=== PATIENT | female | born 1980 | race Caucasian/White ===

== ENCOUNTER → 2017-10-02 14:58 | Outpatient (REF) | payer MEDICAID, SELFPAY ==
[2017-10-02 19:26] LABS: Alanine Aminotransferase 22 U/L (12-78); Albumin Level 3.9 gm/dL (3.4-5.0); Albumin/Globulin Ratio 1.1 (1.1-1.8); Alkaline Phosphatase 74 U/L (46-116); Anion Gap 15.2 mEq/L (5-15); Bilirubin,Total 0.1 mg/dL (0.2-1.0); Blood Urea Nitrogen 10 mg/dL (7-18); Calcium 9.3 mg/dL (8.5-10.1); Carbon Dioxide 23 mmol/L (21.0-32.0); Chloride 104 mmol/L (98-107); Creatinine,Serum 0.37 mg/dL (0.55-1.02); Estimated Glomerular Filt Rate 197 ml/min (>60); Free T4 (Free Thyroxine) 1.03 ng/dl (0.76-1.46); GFR (African American) 238 ML/MIN (>60); Globulin 3.4 gm/dl (1.3-3.2); Glucose 92 mg/dL (74-106); Sodium 137 mmol/L (136-145); Thyroid Stimulating Hormone 1.89 uIU/ml (0.358-3.740); Total Protein,Serum 7.3 gm/dL (6.4-8.2)
[2017-10-02 19:36] LABS: Potassium 5.2 mmoL/L (3.5-5.1)
[2017-10-02 19:37] LABS: Aspartate Amino Transferase 17 U/L (15-37)
[2017-10-04 08:51] LABS: Vitamin D 25 Hydroxy 24.2 ng/mL (30.0-100.0)
== END ==
LOC: LAB 14:58
PROVIDERS: Visit Provider Emergency Medicine
DX: R53.83 Other fatigue (principal); Z79.899 Other long term (current) drug therapy
CPT/HCPCS: 80053; 82652; 84439; 84443

== ENCOUNTER → 2017-10-23 14:28 | Outpatient (REF) | payer MEDICAID, SELFPAY ==
[2017-10-23 18:51] LABS: Amphetamine/Metha Screen,Urine Negative ng/mL (<1000); Barbiturates Screen,Urine Negative ng/mL (<200); Benzodiazepines Screen,Urine Negative ng/mL (200); Cannabinoid Screen,Urine Negative ng/mL (<50); Cocaine Screen,Urine Negative ng/g (<300); Methadone Screen,Urine Negative ng/mL (<300); Opiate Screen,Urine Negative ng/mL (<300); Phencyclidine Screen,Urine Negative ng/mL (<25)
== END ==
LOC: LAB 14:28
PROVIDERS: Visit Provider Emergency Medicine
DX: Z79.899 Other long term (current) drug therapy (principal)
CPT/HCPCS: 80305

== ENCOUNTER → 2018-02-11 09:52 | Outpatient (REF) | payer MEDICAID, SELFPAY ==
[2018-02-11 13:30] LABS: Amphetamine/Metha Screen,Urine Negative ng/mL (<1000); Barbiturates Screen,Urine Negative ng/mL (<200); Benzodiazepines Screen,Urine Negative ng/mL (200); Cannabinoid Screen,Urine Negative ng/mL (<50); Cocaine Screen,Urine Negative ng/g (<300); Methadone Screen,Urine Negative ng/mL (<300); Opiate Screen,Urine Negative ng/mL (<300); Phencyclidine Screen,Urine Negative ng/mL (<25)
[2018-02-11 13:38] LABS: Alanine Aminotransferase 21 U/L (12-78); Albumin Level 3.8 gm/dL (3.4-5.0); Alkaline Phosphatase 77 U/L (46-116); Bilirubin,Total 0.1 mg/dL (0.2-1.0); Free T4 (Free Thyroxine) 0.92 ng/dl (0.76-1.46); Thyroid Stimulating Hormone 1.68 uIU/ml (0.358-3.740); Total Protein,Serum 7.1 gm/dL (6.4-8.2)
[2018-02-11 13:45] LABS: Aspartate Amino Transferase 19 U/L (15-37); Bilirubin,Direct < 0.1 mg/dL (0.0-0.2)
[2018-02-12 10:23] LABS: Hep A Ab, IgM Negative (Negative); Hepatitis B Core Antibody IgM Negative (Negative); Hepatitis B Surface Antigen Negative (Negative)
[2018-02-12 14:39] LABS: Hepatitis C Antibody <0.1 s/co ratio (0.0-0.9)
[2018-02-14 18:25] LABS: Alprazolam Negative (Cutoff=100); Benzodiazepines Negative ng/mL (Cutoff=100); Clonazepam Negative (Cutoff=100); Flurazepam Negative (Cutoff=100); Lorazepam Negative (Cutoff=100); Midazolam Negative (Cutoff=100); Temazepam Negative (Cutoff=100); Triazolam Negative (Cutoff=100)
== END ==
LOC: LAB 09:52
PROVIDERS: Visit Provider Emergency Medicine
DX: F41.9 Anxiety disorder, unspecified (principal); Z79.899 Other long term (current) drug therapy
CPT/HCPCS: 80074; 80076; 80305; 80346; 84439; 84443; 87522

== ENCOUNTER → 2018-03-25 13:08 | Outpatient (REF) | payer MEDICAID, SELFPAY ==
[2018-03-25 19:19] LABS: Amphetamine/Metha Screen,Urine Negative ng/mL (<1000); Barbiturates Screen,Urine Negative ng/mL (<200); Benzodiazepines Screen,Urine Negative ng/mL (<200); Cannabinoid Screen,Urine Negative ng/mL (<50); Cocaine Screen,Urine Negative ng/mL (<300); Methadone Screen,Urine Negative ng/mL (<300); Opiate Screen,Urine Negative ng/mL (<300); Phencyclidine Screen,Urine Negative ng/mL (<25)
== END ==
LOC: LAB 13:08
PROVIDERS: Visit Provider Emergency Medicine
DX: Z79.899 Other long term (current) drug therapy (principal)
CPT/HCPCS: 80305

== ENCOUNTER → 2019-10-30 07:55 | Outpatient (CLI) | payer MEDICAID, SELFPAY ==
[2019-10-30 08:59] LABS: Basophils # 0.1 K/mm3 (0-0.2); Basophils % 1.1 % (0.1-2.0); Eosinophils # 0.2 K/mm3 (0.0-0.4); Eosinophils % 2.3 % (0.1-12.0); Hematocrit 36.8 % (37.0-47.0); Hemoglobin 11.3 g/dL (12.2-16.2); Lymphocytes # 3.5 K/mm3 (0.7-4.5); Lymphocytes % 34.9 % (10-50); Mean Corpuscular HGB Conc 30.7 g/dL (31.8-35.4); Mean Corpuscular Hemoglobin 24.3 pg (27.0-31.2); Mean Corpuscular Volume 79.2 fl (81-99); Mean Platelet Volume 7.7 fl (7.4-10.4); Monocytes # 0.5 K/mm3 (0.1-1.0); Monocytes % 4.5 % (1.7-9.3); Neutrophils # 5.8 K/mm3 (1.8-7.8); Neutrophils % 57.2 % (37.0-80.0); Platelet Count 501 K/mm3 (142-424); Red Blood Count 4.65 M/mm3 (4.20-5.40); Red Cell Distribution Width 16.9 % (11.5-17.5); White Blood Count 10.1 K/mm3 (4.8-10.8)
[2019-10-30 10:11] LABS: Alanine Aminotransferase 15 U/L (12-78); Albumin Level 4.4 g/dl (3.5-5.0); Albumin/Globulin Ratio 1.6 (1.1-1.8); Alkaline Phosphatase 66 U/L (38-126); Anion Gap 11.9 mEq/L (5-15); Aspartate Amino Transferase 23 U/L (14-36); Blood Urea Nitrogen 13 mg/dl (7-17); Calcium 9.7 mg/dl (8.4-10.2); Carbon Dioxide 25 mmol/L (22.0-30.0); Chloride 102 mmol/L (98-107); Chol/HDL Ratio 3.6 (1-3.5); Cholesterol 202 mg/dl (140-200); Estimated Glomerular Filt Rate 137 ml/min (>60); GFR (African American) 165 ML/MIN (>60); Globulin 2.7 g/dL (1.3-3.2); Glucose 84 mg/dl (74-100); HDL Cholesterol 56 mg/dl (40-60); Potassium 3.9 mmoL/L (3.5-5.1); Sodium 135 mmol/L (136-145); Total Protein,Serum 7.1 g/dl (6.3-8.2); Triglycerides 85 mg/dl (30-150); VLDL Cholesterol 17 mg/dL (0-40)
[2019-10-30 10:20] LABS: Bilirubin,Total 0.1 mg/dl (0.2-1.3)
[2019-10-30 10:22] LABS: Direct LDL Cholesterol 132.05 mg/dL (100-129)
[2019-10-30 10:27] LABS: T4 (Thyroxine) 8.7 ug/dl (5.53-11.0)
[2019-10-30 10:40] LABS: Thyroid Stimulating Hormone 0.98 uIU/mL (0.465-4.68)
[2019-10-31 10:37] LABS: Vitamin D 25 Hydroxy 18.2 ng/mL (30.0-100.0)
== END ==
PROVIDERS: Visit Provider Nurse Practitioner Family
DX: Z00.00 Encounter for general adult medical examination without abnormal findings (principal); E55.9 Vitamin D deficiency, unspecified; E66.3 Overweight; F41.9 Anxiety disorder, unspecified
CPT/HCPCS: 36415; 80053; 80061; 82652; 84436; 84443; 85025

== ENCOUNTER → 2020-02-25 13:46 | Outpatient (CLI) | payer MEDICAID, SELFPAY ==
--- NOTE | 2020-02-25 13:46 | MR_ITS ---
PROCEDURE: MR LUMBAR SPINE WO CON CLINICAL INDICATION: back pain Low back pain COMPARISON: CT ABDOMEN PELVIS W CON from 11/22/2019 TECHNIQUE: Standard multiplanar multiecho sequences are performed without contrast. 3-D MIP and myelographic images are also rendered and reviewed FINDINGS: There is normal alignment. The spinal cord ends at the L1 level. There is normal alignment. No fracture or dislocation. Mild facet hypertrophic changes are present at L3-L4. Mild facet hypertrophic changes at L4-5 with minimal bulging of the disc and mild bilateral foraminal narrowing. Mild hypertrophic changes of the facets at L5-S1 greater on the left with minimal foraminal narrowing. There are mild degenerative changes of the SI joints. IMPRESSION: Mild degenerative changes as described above. No obvious neural impingement. No disc herniation or canal stenosis. Dictated by: Roger Kerr MD 02/26/2020 14:55 Electronically signed by Roger Kerr MD in [place] 02/26/2020 14:55
== END ==
PROVIDERS: PCP Emergency Medicine; Visit Provider Emergency Medicine
DX: M54.9 Dorsalgia, unspecified (principal); M54.5 Low back pain
CPT/HCPCS: 72148; 76376

== ENCOUNTER 2020-05-23 16:42 | Emergency (ER) | payer MEDICAID, SELFPAY ==
[2020-05-23 17:18] VITALS: BP 129/94; PULSE 86; RESP 20; TEMP 37; O2SAT 97; BMI 37.5
--- NOTE | 2020-05-23 17:22 | HMH.EDUTC ---
[facility] – [place] Disposition Clinical Impression: Nausea & vomiting Qualifiers: Vomiting type: unspecified Vomiting Intractability: unspecified Qualified Code(s): R11.2 - Nausea with vomiting, unspecified Disposition: Home, Self-Care Condition on Discharge: Good Instructions: DI for Nausea -- Adult, Nausea and Vomiting-Adult, Preventing the Spread of Coronavirus Discharge Instructions Additional Instructions: ? Drink extra fluids with and between meals. If you have difficulty drinking, try very small amounts of water or suck on ice chips. ? Avoid fruit juices, as these do not replace minerals and can actually increase diarrhea. ? Children and adults can use sports drinks to replenish electrolytes. Younger children and infants should use products formulated for children, like oral rehydration solutions. ? Eat food in small amounts and let your stomach recover. ? Get lots of rest. You may feel tired or weak. ? No greasy or fried foods for the next 24-48 hours BRAT diet Bananas Rice Apples and Leon ? Make sure to drink plenty of liquids ? Return if needed ? Straight to ER if any life threatening symptoms ? Phenergan as prescribed ? You was given an outpatient order for diarrhea panel, please collect specimen and bring back to outpatient lab then call back to the [facility] or follow up with family doctor for results ? Follow up with family doctor in the next 48-72 hours if no improvement or any worsening of symptoms You was tested for COVID 19 call back to the [facility] in the next 48-72 hours to see what your test result was and you was given hand out with instructions for Self isolation and self quarantine make sure to follow those instructions Prescriptions: Promethazine HCl [Phenergan 12.5mg tablet] 12.5 mg PO Q6H PRN #6 tab PRN Reason: Nausea Transmission Status: Pending to [facility] Referrals: Will Kessler MD [Primary Care Provider] - As needed Forms: Work/School Release Time of Disposition: 17:45 Medical Decision Making - Kelvin Inquiry Pt receiving controlled substance: No Kelvin was queried for this patient: No Vital Signs: 05/23/20 17:18 Temperature 98.6 F Temperature Source Oral Pulse Rate [Right Brachial] 86 Respiratory Rate 20 Blood Pressure [Right Arm] 129/94 H Blood Pressure Mean [Right Arm] 105 Blood Pressure Source [Right Arm] Automatic Cuff Blood Pressure Position [Right Arm] Sitting 02 Sat by Pulse Oximetry 97 Oxygen Delivery Method Room Air - Lab Data Lab results reviewed: Yes: I reviewed the patient's lab results. Orders (Tests/Meds): ORDERS Category Date Time Status Covid-19 Nasal PCR Sendout [facility] 05/23/20 17:22 Ordered [facility] – [place] HPI - General Stated complaint: Vomiting, LITTLE, COVID Exposure Time Seen by Provider: 05/23/20 17:22 Mode of Arrival: Ambulatory Source of Information: Patient Limitations: No Limitations Description of Symptoms (Recalled from Triage Doc. by RN): PATIENT C/O NAUSEA, DIARRHEA, HEADACHE, FATIGUE, COUGH AND DIZZINESS X 3 DAYS. WAS AROUND SOMEONE WHO TESTED POSITIVE FOR COVID AT A WEEKEND [employer] HEENT Symptoms (Recalled from RN notes): Yes Resp Symptoms (Recalled from RN notes): Yes Skin Symptoms (Recalled from RN notes): No MS Symptoms (Recalled from RN notes): No Functional Status (Recalled from RN notes): WNL - History of Present Illness Provider Complaint: Patient states that she was recently around someone who tested positive for COVID States that for the last 3 days she has been having body aches, chills, nausea and vomiting and over all not feeling well States that she is unsure if she is has had fever or not States that she wanted to come in and get checked for COVID - Related Data Previous Rx's Medication Instructions Recorded hydroxyzine pamoate 25 mg capsule 25 mg PO TID PRN #90 cap 02/05/20 clonazepam 0.5 mg tablet 0.5 mg PO BID 30 Days #60 tab 02/18/20 cyclobenzaprine 10 mg tablet 10 mg PO BID #60 tab 02/18/20 hydrocodone 5 mg-acetamino
[2020-05-23 17:52] VITALS: BP 129/94; PULSE 86; RESP 20; TEMP 37; O2SAT 97
[2020-05-24 09:34] LABS: UTC Pregnancy Test, Urine Negative (Negative)
[2020-05-25 16:14] LABS: Covid-19 Nasal PCR Sendout Lex Not Detected
== END 2020-05-23 17:53 | disposition home or self-care (01) ==
PROVIDERS: Emergency Provider Nurse Practitioner; PCP Emergency Medicine
DX: R11.2 Nausea with vomiting, unspecified (principal); Z20.828 Contact with and (suspected) exposure to other viral communicable diseases; F41.8 Other specified anxiety disorders; Z79.899 Other long term (current) drug therapy; F17.210 Nicotine dependence, cigarettes, uncomplicated
CPT/HCPCS: 81025; 99202; U0003; U0004

== ENCOUNTER 2020-11-01 20:22 | Emergency (ER) | payer MEDICAID, SELFPAY ==
[2020-11-01 20:24] VITALS: BP 138/91; PULSE 88; RESP 16; TEMP 36.6; O2SAT 100; BMI 40.7
--- NOTE | 2020-11-01 21:13 | HMH.EDSKAF ---
ED Disposition Clinical Impression: Breast mass, right Disposition: Home, Self-Care Condition on Discharge: Good Instructions: DI for Breast Mass -- Uncertain Cause Additional Instructions: call pcp in am Referrals: Avi Brooke MD [Primary Care Provider] - - Critical Care Critical Care Time: No Attestation: On 11/01/20, the high probability of a clinically significant, sudden or life threatening deterioration of the following system(s) required my full and direct attention, intervention and personal management. The time I documented below is in addition to time spent performing reported procedures but includes the following listed in this critical care notation. Medical Decision Making - Medical Records Medical records reviewed: Yes: I reviewed the patient's medical records. - Kelvin Inquiry Pt receiving controlled substance: No Vital Signs: 11/01/20 20:24 Temperature 97.9 F Temperature Source Oral Pulse Rate [Right Radial] 88 Respiratory Rate 16 Blood Pressure [Right Arm] 138/91 H Blood Pressure Mean [Right Arm] 106 Blood Pressure Source [Right Arm] Automatic Cuff Blood Pressure Position [Right Arm] Supine 02 Sat by Pulse Oximetry 100 Oxygen Delivery Method Room Air - Lab Data Lab results reviewed: Yes: I reviewed the patient's lab results. Lab Results 11/01/20 22:40: WBC 13.6 H, RBC 4.70, Hgb 13.5, Hct 41.2, MCV 87.6, MCH 28.7, MCHC 32.8, RDW 15.8, Plt Count 350, MPV 7.6, Neut % (Auto) 69.0, Lymph % (Auto) 21.7, [place] % (Auto) 6.1, Eos % (Auto) 2.8, Baso % (Auto) 0.4, Neut # (Auto) 9.4 H, Lymph # (Auto) 3.0, [place] # (Auto) 0.8, Eos # (Auto) 0.4, Baso # (Auto) 0.1, ESR 36 H 11/01/20 22:40: Sodium 140, Potassium 3.8, Chloride 107, Carbon Dioxide 29, Anion Gap 7.8, BUN 12, Creatinine 0.40 L, Estimated Creat Clear 345 H, Estimated GFR 176, Est GFR ( Amer) 213, Glucose 114 H, Calcium 9.8, Total Bilirubin 0.3, AST 23, ALT 20, Alkaline Phosphatase 82, C-Reactive Protein 19.2 H, Total Protein 7.3, Albumin 4.2, Globulin 3.1, Albumin/Globulin Ratio 1.4, TSH 1.02, Thyroxine (T4) 8.8 Result diagrams: 11/01/20 22:40 11/01/20 22:40 - Physician Consults Physician Consulted: la Reason -: Pt condition Medical Decision Narrative: will need mammogram and u/s and surg eval - pt left as ed was busy and delay in testing Skin/Abscess/FB HPI - General Chief complaint: Skin/Abscess/Foreign Body Stated complaint: painful knot on R breast Time Seen by Provider: 11/01/20 21:00 Mode of Arrival: Ambulatory Source of Information: Patient, Spouse, Medical Record Limitations: No Limitations Description of Symptoms (Recalled from ER Triage Doc. by RN): Pt reports a painful knot on right breast under nipple. Pt states she noticed it yesterday. No discharge or redness reported. - History of Present Illness HPI narrative: mass rt breast noted yesterday - has fh of breast cancer - no reddness or d/c or changes in skin - MD complaint: lesion Onset (ago): day(s) Severity: moderate Associated symptoms: denies other symptoms - Related Data Previous Rx's Medication Instructions Recorded mecobalamin (vitamin B12) 5,000 5,000 mcg PO DAILY #90 tab 07/27/20 mcg disintegrating tablet [id number]-[id number]-hjdy-FA-Ca carb-vit K See Rx Instructions .ROUTE 07/27/20 18 mg iron-400 mcg-500 mg tablet .COMPLEX #90 tab promethazine 12.5 mg tablet 12.5 mg PO Q6H PRN #10 tab 07/27/20 cholecalciferol (vitamin D3) 50 50 mcg PO DAILY #90 cap 09/16/20 mcg (2,000 unit) capsule cyclobenzaprine 10 mg tablet 10 mg PO BID #60 tab 09/16/20 escitalopram oxalate 10 mg tablet 10 mg PO DAILY #90 tab 09/16/20 hydroxyzine HCl 50 mg tablet 50 mg PO HS #30 tab 09/16/20 clonazepam 1 mg tablet 1 mg PO BID #60 tab 09/28/20 hydrocodone 5 mg-acetaminophen 325 1 tab PO DAILY #15 tab 10/28/20 mg tablet Allergies Allergy/AdvReac Type Severity Reaction Status Date / Time aspirin [ASPIRIN] Allergy Intermediate I-RASH Verified 09/16/20 13:3
[2020-11-01 22:46] LABS: Basophils # 0.1 K/mm3 (0-0.2); Basophils % 0.4 % (0.1-2.0); Eosinophils # 0.4 K/mm3 (0.0-0.4); Eosinophils % 2.8 % (0.1-12.0); Hematocrit 41.2 % (37.0-47.0); Hemoglobin 13.5 g/dL (12.2-16.2); Lymphocytes % 21.7 % (10-50); Mean Corpuscular HGB Conc 32.8 g/dL (31.8-35.4); Mean Corpuscular Hemoglobin 28.7 pg (27.0-31.2); Mean Corpuscular Volume 87.6 fl (81-99); Mean Platelet Volume 7.6 fl (7.4-10.4); Monocytes # 0.8 K/mm3 (0.1-1.0); Monocytes % 6.1 % (1.7-9.3); Neutrophils # 9.4 K/mm3 (1.8-7.8); Platelet Count 350 K/mm3 (142-424); Red Cell Distribution Width 15.8 % (11.5-17.5); White Blood Count 13.6 K/mm3 (4.8-10.8)
[2020-11-01 22:50] LABS: Chloride 107 mmol/L (98-107); Potassium 3.8 mmoL/L (3.5-5.1); Sodium 140 mmol/L (136-145)
[2020-11-01 22:52] LABS: Blood Urea Nitrogen 12 mg/dl (7-17); Creatinine Clearance Estimated 345 mL/min (50-200); Estimated Glomerular Filt Rate 176 ml/min (>60); GFR (African American) 213 ML/MIN (>60)
[2020-11-01 22:53] LABS: Alanine Aminotransferase 20 U/L (12-78); Albumin Level 4.2 g/dl (3.5-5.0); Albumin/Globulin Ratio 1.4 (1.1-1.8); Alkaline Phosphatase 82 U/L (38-126); Anion Gap 7.8 mEq/L (5-15); Aspartate Amino Transferase 23 U/L (14-36); Bilirubin,Total 0.3 mg/dl (0.2-1.3); Calcium 9.8 mg/dl (8.4-10.2); Carbon Dioxide 29 mmol/L (22.0-30.0); Globulin 3.1 g/dL (1.3-3.2); Glucose 114 mg/dl (74-100); Total Protein,Serum 7.3 g/dl (6.3-8.2)
[2020-11-01 22:59] LABS: C-Reactive Protein 19.2 mg/L (0-4)
[2020-11-01 23:13] LABS: T4 (Thyroxine) 8.8 ug/dl (5.53-11.0)
[2020-11-01 23:26] LABS: Thyroid Stimulating Hormone 1.02 uIU/mL (0.465-4.68)
[2020-11-01 23:43] LABS: Erythrocyte Sedimentation Rate 36 mm/hr (0-20)
[2020-11-02 00:19] VITALS: BP 000/00; PULSE 0; RESP 0; TEMP -17.7; TEMP 0; O2SAT 0
--- NOTE | 2020-11-02 00:22 | PC.NURSE ---
Pt became upset and started yelling at the physician, she felt like she was here to long. Dr Kessler explained we were working a Trauma and waiting on [place] to come in her her. Pt cussed Physician and walk out.
== END 2020-11-02 00:25 | disposition home or self-care (01) ==
PROVIDERS: Emergency Provider Emergency Medicine; PCP Family Medicine
DX: N63.10 Unspecified lump in the right breast, unspecified quadrant (principal); F41.8 Other specified anxiety disorders; F17.210 Nicotine dependence, cigarettes, uncomplicated; Z79.899 Other long term (current) drug therapy
CPT/HCPCS: 80053; 84436; 84443; 85025; 85651; 86140; 99282

== ENCOUNTER → 2020-11-08 14:00 | Outpatient (CLI) | payer MEDICAID, SELFPAY ==
--- NOTE | 2020-11-08 14:03 | MM_ITS ---
PROCEDURE: MM DIG MAMM BI DX W/CAD Digital Breast Tomosynthesis Included CLINICAL INDICATION: right breast mass COMPARISON: US US BREAST RT COMPLETE from 11/08/2020 TECHNIQUE: Diagnostic mammogram of both breast along with right breast ultrasound FINDINGS: Average fibroglandular tissue. There is a 1.7 cm round nodule in the retroareolar region on the right. There is a small nodular opacity in the right axillary region which measures 5 mm. On the left there is a faint asymmetry in the upper aspect of the left breast on the MLO view which is not readily demonstrated on the tomographic images and may represent a summation artifact. No malignant appearing microcalcifications. Right breast ultrasound: A complex cyst is present in the retroareolar region measuring 17 mm. The ahn are somewhat irregular with some minimal thickening of the wall anteriorly. This corresponds to the mammographic abnormality. There are few small nodes in the axilla 1 which could represent the density in the deep axillary region on the mammogram. IMPRESSION: Complex right breast cyst corresponding to palpable abnormality. There are some features such is irregularity of the wall and mild wall thickening which lend this to be mildly suspicious. Recommend ultrasound-guided cyst aspiration. At that time would also recommend a spot view of the nodular density in the right axillary area. BI-RAD Category: 4 Suspicious Abnormality - Biopsy Considered FOLLOW-UP: Ultrasound-guided right breast cyst aspiration (A letter has been sent to the patient regarding results of the study.) Dictated by: Roger Kerr MD 11/16/2020 09:38 Roger Kerr MD in [place] 11/16/2020 09:38
== END ==
PROVIDERS: PCP Family Medicine; Visit Provider Physician Assistant
DX: N63.10 Unspecified lump in the right breast, unspecified quadrant (principal)
CPT/HCPCS: 76641; 77062; 77066; G0279

== ENCOUNTER → 2020-11-25 09:05 | Outpatient (CLI) | payer MEDICAID, SELFPAY ==
--- NOTE | 2020-11-25 09:05 | US_ITS ---
PROCEDURE: US FNA BREAST CLINICAL INDICATION: Right breast nodule COMPARISON: US US BREAST RT COMPLETE from 11/08/2020 MG MM DIG MAMM BI DX W/CAD from 11/08/2020 MG MM DIG MAMM DX UNILAT RT CAD from 11/25/2020 FINDINGS: Following obtaining informed consistent and time-out procedure under aseptic conditions and local anesthesia with percent buffered lidocaine, a 21 gauge needle was inserted into the cyst aspirate was obtained. FNA was also performed in what appear to represent a solid component along the cyst wall. The patient tolerated the procedure well without evidence of immediate complication. There was some residual decreased echogenicity at the aspiration site following the procedure. Cytology: Aspirate 1: Negative malignant cells. This was of the nodular component. Cytology: Aspirate 2 of the cyst itself demonstrated foamy macrophages a single atypical ductal epithelial group of undetermined significance. Fibro inflammatory debris and mixed inflammation. Unilateral right mammogram: Images were obtained before and after the FNA. The pre FNA images were performed to evaluate a nodular lesion in the deep upper right breast which appears to represent a small lymph node at 6 mm. The nodularity in the retroareolar region is less prominent on the post FNA images. There does remain some nodularity present. BI-RADS category 3 probably benign. IMPRESSION: Uneventful FNA of the right breast as described above There was a single atypical ductal epithelial group of undetermined significance. Suggest close monitoring in 3 months with ultrasound and mammographies. Alternatively, a mammotome biopsy or surgical excision with hookwire placement could be performed. Dictated by: Roger Kerr MD 12/03/2020 08:56 Roger Kerr MD in [place] 12/03/2020 08:56
== END ==
PROVIDERS: PCP Family Medicine; Visit Provider Family Medicine
DX: N63.10 Unspecified lump in the right breast, unspecified quadrant (principal)
CPT/HCPCS: 10005; 77061; 77065; G0279

== ENCOUNTER → 2021-02-02 12:38 | Outpatient (CLI) | payer MEDICAID, SELFPAY ==
--- NOTE | 2021-02-02 12:38 | US_ITS ---
PROCEDURE: US CORE BIOPSY AND FNA RT BREAST CLINICAL INDICATION: Rt breast mass COMPARISON: US US BREAST RT COMPLETE from 11/08/2020 US US FNA BREAST from 11/25/2020 FINDINGS: Patient has had a recent FNA the subareolar region on of the right breast. This demonstrated a single atypical ductal epithelial group of undetermined significance. Today repeat FNA was performed along with 2 core biopsies of this region. Under aseptic conditions time-out procedure and local anesthesia with 1 percent buffered lidocaine, 21 gauge needle was used for FNA and then an 18 gauge core biopsy needle performed x2 of the nodular area. The patient tolerated the procedure well without evidence of immediate complications. Pathology is pending. IMPRESSION: Uneventful ultrasound-guided FNA and core biopsy of the right breast. Pathology pending Dictated by: Roger Kerr MD 02/02/2021 16:45 Roger Kerr MD in [place] 02/02/2021 16:45
== END ==
PROVIDERS: PCP Family Medicine; Visit Provider Surgery
DX: N63.10 Unspecified lump in the right breast, unspecified quadrant (principal)
CPT/HCPCS: 19083

== ENCOUNTER → 2021-10-03 09:34 | Outpatient (CLI) | payer MEDICAID, SELFPAY | PROVIDERS: PCP Family Medicine; Visit Provider Nurse Practitioner | DX: U07.1 COVID-19 (principal) | CPT/HCPCS: C9803; U0003; U0005 ==

== ENCOUNTER → 2021-10-19 16:00 | Outpatient (CLI) | payer MEDICAID, SELFPAY | PROVIDERS: Visit Provider Family Medicine | DX: R82.90 Unspecified abnormal findings in urine (principal); B96.20 Unspecified Escherichia coli [E. coli] as the cause of diseases classified elsewhere | CPT/HCPCS: 87086; 87088; 87186 ==

== ENCOUNTER 2021-12-05 16:25 | Emergency (ER) | payer MEDICAID, SELFPAY ==
[2021-12-05 18:15] VITALS: BP 150/90; PULSE 72; RESP 18; TEMP 37.1; O2SAT 98; BMI 42.9
[2021-12-05 18:38] LABS: UTC Influenza A Antigen Positive (Negative); UTC Influenza B Antigen Negative (Negative)
[2021-12-05 19:00] VITALS: BP 150/90; PULSE 72; RESP 18; TEMP 37.1; O2SAT 98
--- NOTE | 2021-12-05 19:03 | HMH.EDUTC ---
[facility] [place] Clinical Impression: Influenza Disposition: Home, Self-Care Condition on Discharge: Good Instructions: Influenza, DI for Influenza -- Adult Additional Instructions: ? Lots of rest ? Increase Fluids water, Gatorade, powerade, pedialyte,if /toddler/child ? Alternate Tylenol and / or ibuprofen as discussed for fever, aches, chills Follow up IMMEDIATELY with your family doctor for new or worsening Symptoms OR no noticeable improvement over the next 48-72 hours, 911 for difficulty or breathing ? You or your child area contagious until no fever, aches, chills for 24 hours with medication for symptoms ? Help Prevent the spread of influenza: ? Wash your hands often. Use soap and water. Wash your hands after you use the bathroom, change a child's diapers, or sneeze. Wash your hands before you prepare or eat food. Use gel hand cleanser that has 60% alcohol, when soap and water are not available. Do not touch your eyes, nose, or mouth unless you have washed your hands first. ? Cover your mouth when you sneeze or cough. Cough into a tissue or the bend of your arm. If you use a tissue, throw it away immediately and wash your hands. ? Clean shared items with a germ-killing domestic cleaner. Clean table surfaces, doorknobs, and light switches. Do not share towels, silverware, and dishes with people who are sick. Wash bed sheets, towels, silverware, and dishes with soap and water. ? Wear a mask over your mouth and nose if you are sick. The face mask may help protect others from becoming infected with the flu. Wear the mask when in common areas of your home or if you seek care with a healthcare provider. ? Stay away from others if you are sick. Stay at home until 24 hours after your fever and symptoms are gone. Over the counter cold medication may help with symptoms Prescriptions: Benzonatate [Benzonatate 100mg cap] 100 mg PO Q8HP PRN #15 cap PRN Reason: Cough Transmission Status: Pending to [facility] Ondansetron [Zofran 4mg ODT] 4 mg PO TIDP PRN #10 tab PRN Reason: Vomiting Transmission Status: Pending to [facility] Referrals: Avi Brooke MD [Primary Care Provider] - As needed Time of Disposition: 19:13 Medical Decision Making - Kelvin Inquiry Pt receiving controlled substance: No Kelvin was queried for this patient: No Vital Signs: 12/05/21 18:15 12/05/21 19:00 Temperature 98.8 F 98.8 F Temperature Source Oral Pulse Rate 72 Pulse Rate [Right Brachial] 72 Respiratory Rate 18 18 Blood Pressure 150/90 H Blood Pressure [Right Arm] 150/90 H Blood Pressure Mean [Right Arm] 110 Blood Pressure Source [Right Arm] Automatic Cuff Blood Pressure Position [Right Arm] Sitting 02 Sat by Pulse Oximetry 98 Oxygen Delivery Method Room Air - Lab Data Lab results reviewed: Yes: I reviewed the patient's lab results. Lab Results 12/05/21 18:09: Influenza Type A Ag Positive A, Influenza Type B Ag Negative [facility] [place] - General Stated complaint: cOUGH, VOMITING, RUNNY NOSE, FEVER Time Seen by Provider: 12/05/21 18:30 Mode of Arrival: Ambulatory Source of Information: Patient Limitations: No Limitations Description of Symptoms (Recalled from Triage Doc. by RN): PATIENT C/O VOMITING, COUGH AND DIZZINESS HEENT Symptoms (Recalled from RN notes): Yes Resp Symptoms (Recalled from RN notes): No Skin Symptoms (Recalled from RN notes): No MS Symptoms (Recalled from RN notes): No Functional Status (Recalled from RN notes): WNL - History of Present Illness Provider Complaint: patient states that she was around her daughter that has the flu States that she has been having N/V body aches chills and cough States that her other children are sick as well so she came in - Related Data Previous Rx's Medication Instructions Recorded promethazine 12.5 mg tablet 12.5 mg PO Q6H PRN #20 tab 01/17/21 topiramate 50 mg tablet 50 mg PO DAILY #30 tab 03/17/21 hydroxyzine HCl 50 mg tablet 50 mg PO HS #30 ta
== END 2021-12-05 19:44 | disposition home or self-care (01) ==
PROVIDERS: Emergency Provider Nurse Practitioner; PCP Family Medicine
DX: J10.1 Influenza due to other identified influenza virus with other respiratory manifestations (principal); R42 Dizziness and giddiness; F32.A Depression, unspecified; F41.9 Anxiety disorder, unspecified; F17.210 Nicotine dependence, cigarettes, uncomplicated; Z79.899 Other long term (current) drug therapy; Z82.49 Family history of ischemic heart disease and other diseases of the circulatory system; Z83.6 Family history of other diseases of the respiratory system
CPT/HCPCS: 87804; 99213; G0463

== ENCOUNTER 2022-04-01 02:07 | Emergency (ER) | payer MEDICAID, SELFPAY ==
[2022-04-01 02:08] VITALS: BP 141/94; PULSE 74; RESP 19; TEMP 36.5; O2SAT 95; BMI 37.5
[2022-04-01 02:40] VITALS: BMI 37.5
--- NOTE | 2022-04-01 02:43 | CT_ITS ---
PROCEDURE INFORMATION: Exam: CT Abdomen And Pelvis With Contrast Exam date and time: 04/01/2022 3:38 AM Age: 41 years old Clinical indication: Abdominal pain; Other: Low abdomen; Prior surgery; Surgery date: 6+ months; Surgery type: D&c; Additional info: Low abd pain with n/v TECHNIQUE: Imaging protocol: Computed tomography of the abdomen and pelvis with contrast. Radiation optimization: All CT scans at this facility use at least one of these dose optimization techniques: automated exposure control; mA and/or kV adjustment per patient size (includes targeted exams where dose is matched to clinical indication); or iterative reconstruction. Contrast material: ISOVUE; Contrast volume: 75 ml; Contrast route: IV; COMPARISON: CT ABDOMEN PELVIS W CON 11/22/2019 5:17 AM FINDINGS: Lungs: Clear basilar lung parenchyma. Pleural spaces: No pleural fluid. Heart: Normal heart size. Liver: Homogeneous parenchyma. 22 cm in length. Gallbladder and bile ducts: Normal. No calcified stones. No ductal dilation. Pancreas: Normal. No ductal dilation. Spleen: 12.5 cm in length. Homogeneous parenchyma. Adrenal glands: Normal. No mass. Kidneys and ureters: Kidneys enhance symmetrically and demonstrate no evidence of mass, calculus, obstruction, or inflammation. Stomach and bowel: Unremarkable. No obstruction. No mucosal thickening. Appendix: Normal appendix is in a retrocecal position. Intraperitoneal space: Unremarkable. No free air. No significant fluid collection. Vasculature: Minimal arterial calcification. Normal caliber abdominal aorta. Lymph nodes: Unremarkable. No enlarged lymph nodes. Urinary bladder: Unremarkable as visualized. Reproductive: Unremarkable as visualized. Bones/joints: Minimal sacroiliac degenerative change. Soft tissues: Unremarkable. IMPRESSION: No acute abnormality to explain patient's low abdomen pain. Normal appendix confirmed. No urolithiasis. Normal colon.
[2022-04-01 02:48] LABS: Microscopic, Urine URINE MICROSCOPIC (MICROSCOPIC)
[2022-04-01 02:54] LABS: Appearance,Urine CLEAR (Clear); Bilirubin,Urine Negative (Negative); Blood, Urine Negative (Negative); Color,Urine YELLOW (Yellow); Glucose,Urine (UA) Negative (Negative); Ketones,Urine Negative (Negative); Leukocyte Esterase,Urine Negative (Negative); Nitrate,Urine Negative (Negative); Protein,Urine Negative (Negative); Specific Gravity, Urine >= 1.030 (1.005-1.030); Urobilinogen,Urine 0.2 EU/dl (0.2)
[2022-04-01 03:00] LABS: Basophils # 0.1 K/mm3 (0-0.2); Basophils % 0.9 % (0.1-2.0); Eosinophils # 0.3 K/mm3 (0.0-0.4); Eosinophils % 3.3 % (0.1-12.0); Hematocrit 42.8 % (37.0-47.0); Hemoglobin 14.1 g/dL (12.2-16.2); Lymphocytes # 3.2 K/mm3 (0.7-4.5); Lymphocytes % 30.7 % (10-50); Mean Corpuscular HGB Conc 32.9 g/dL (31.8-35.4); Mean Corpuscular Hemoglobin 29.7 pg (27.0-31.2); Mean Corpuscular Volume 90.4 fl (81-99); Mean Platelet Volume 7.8 fl (7.4-10.4); Monocytes # 0.5 K/mm3 (0.1-1.0); Monocytes % 4.3 % (1.7-9.3); Neutrophils # 6.3 K/mm3 (1.8-7.8); Neutrophils % 60.8 % (37.0-80.0); Platelet Count 355 K/mm3 (142-424); Red Blood Count 4.73 M/mm3 (4.20-5.40); Red Cell Distribution Width 14.4 % (11.5-17.5); White Blood Count 10.3 K/mm3 (4.8-10.8)
[2022-04-01 03:06] LABS: Renal Epithelial Cells,Urine Occasional #/lpf (0); Squamous Epithelial Cell,Urine Occasional #/hpf (0-5)
[2022-04-01 03:14] LABS: HCG Qualitative, Serum Negative (Negative)
[2022-04-01 03:16] LABS: Alanine Aminotransferase 25 U/L (12-78); Albumin Level 4.1 g/dl (3.5-5.0); Albumin/Globulin Ratio 1.4 (1.1-1.8); Alkaline Phosphatase 83 U/L (38-126); Amylase 63 U/L (30-110); Anion Gap 13.7 mEq/L (5-15); Aspartate Amino Transferase 28 U/L (14-36); Blood Urea Nitrogen 13 mg/dl (7-17); Calcium 9.5 mg/dl (8.4-10.2); Carbon Dioxide 24 mmol/L (22.0-30.0); Chloride 106 mmol/L (98-107); Creatinine Clearance Estimated 252 mL/min (50-200); Estimated Glomerular Filt Rate 135 ml/min (>60); GFR (African American) 164 ML/MIN (>60); Glucose 122 mg/dl (74-100); Lipase 147 U/L (23-300); Potassium 3.7 mmoL/L (3.5-5.1); Sodium 140 mmol/L (136-145); Total Protein,Serum 7.1 g/dl (6.3-8.2)
[2022-04-01 03:21] LABS: C-Reactive Protein 4.2 mg/L (0-4)
[2022-04-01 03:33] LABS: Bilirubin,Total < 0.1 mg/dl (0.2-1.3); Lactic Acid 2.3 mmol/L (0.7-2.1)
[2022-04-01 03:35] LABS: Procalcitonin 0.031 ng/mL (0.0-2.0)
[2022-04-01 03:40] LABS: Erythrocyte Sedimentation Rate 11 mm/hr (0-20)
--- NOTE | 2022-04-01 05:07 | HMH.EDNVD ---
ED Disposition Clinical Impression: Abdominal pain Qualifiers: Abdominal location: generalized Qualified Code(s): R10.84 - Generalized abdominal pain Disposition: Home, Self-Care Condition on Discharge: Good Instructions: DI for Acute Abdominal Pain Additional Instructions: fluids and call pcp for follow up Referrals: Avi Brooke MD [Primary Care Provider] - - Critical Care Critical Care Time: No Attestation: On 04/01/22, the high probability of a clinically significant, sudden or life threatening deterioration of the following system(s) required my full and direct attention, intervention and personal management. The time I documented below is in addition to time spent performing reported procedures but includes the following listed in this critical care notation. Medical Decision Making - Medical Records Medical records reviewed: Yes: I reviewed the patient's medical records. - Kelvin Inquiry Pt receiving controlled substance: No Vital Signs: 04/01/22 02:08 Temperature 97.7 F Temperature Source Oral Pulse Rate [Right] 74 Respiratory Rate 19 Blood Pressure [Right Arm] 141/94 H Blood Pressure Mean [Right Arm] 109 Blood Pressure Source [Right Arm] Automatic Cuff 02 Sat by Pulse Oximetry 95 Oxygen Delivery Method Room Air - Lab Data Lab results reviewed: Yes: I reviewed the patient's lab results. Lab Results 04/01/22 02:30: Urine Color Yellow, Urine Appearance Clear, Urine pH 5.0, Ur Specific [place] >= 1.030, Urine Protein Negative, Urine Glucose (UA) Negative, Urine Ketones Negative, Urine Blood Negative, Urine Nitrate Negative, Urine Bilirubin Negative, Urine Urobilinogen 0.2, Ur Leukocyte Esterase Negative, Ur Squamous Epith Cells Occasional, Ur Renal Epithelial Cell Occasional 04/01/22 02:49: WBC 10.3, RBC 4.73, Hgb 14.1, Hct 42.8, MCV 90.4, MCH 29.7, MCHC 32.9, RDW 14.4, Plt Count 355, MPV 7.8, Neut % (Auto) 60.8, Lymph % (Auto) 30.7, [place] % (Auto) 4.3, Eos % (Auto) 3.3, Baso % (Auto) 0.9, Neut # (Auto) 6.3, Lymph # (Auto) 3.2, [place] # (Auto) 0.5, Eos # (Auto) 0.3, Baso # (Auto) 0.1, ESR 11 04/01/22 02:49: Sodium 140, Potassium 3.7, Chloride 106, Carbon Dioxide 24, Anion Gap 13.7, BUN 13, Creatinine 0.50 L, Estimated Creat Clear 252, Estimated GFR 135, Est GFR ( Amer) 164, Glucose 122 H, Calcium 9.5, Total Bilirubin < 0.1 L, AST 28, ALT 25, Alkaline Phosphatase 83, C-Reactive Protein 4.2 H, Total Protein 7.1, Albumin 4.1, Globulin 3.0, Albumin/Globulin Ratio 1.4, Amylase 63, Lipase 147, Procalcitonin 0.031 04/01/22 02:49: Lactate 2.3 H 04/01/22 02:49: Serum HCG, Qual Negative Result diagrams: 04/01/22 02:49 04/01/22 02:49 Orders (Tests/Meds): ED MEDICATIONS Generic Name Dose Route Start Last Admin Trade Name Freq PRN Reason Stop Dose Admin Sodium Chloride 1,000 mls @ 999 mls/hr 04/01/22 02:45 04/01/22 03:23 Sod Chlor 0.9% 1000ml Bag IV 04/01/22 03:45 999 mls/hr .Q1H1M TASHI Administration Discontinued Medications Generic Name Dose Route Start Last Admin Trade Name Freq PRN Reason Stop Dose Admin Iopamidol 75 ml 04/01/22 03:52 04/01/22 03:53 Iopamidol-370 (76%);100ml Bottle IV 04/01/22 03:53 75 ml ONCE ONE Administration Ondansetron HCl 4 mg 04/01/22 02:43 04/01/22 03:23 Ondansetron 4mg/2ml Vial IV 04/01/22 02:44 4 mg ONCE ONE Administration Sodium Chloride 10 ml 04/01/22 03:52 04/01/22 03:53 Sodium Chloride 0.9% 10ml Syr (Rad Only) IV 04/01/22 03:53 10 ml ONCE ONE Administration - CT Data CT Scan: Abdomen, Pelvis Time Received: 05:[address] Reviewed: Yes: I have viewed the radiologist's interpretation Preliminary Findings: Normal/NAD Medical Decision Narrative: stable exam and labs and xray with 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
[2022-04-01 05:30] VITALS: BP 125/78; PULSE 70; RESP 18; TEMP 36.6; O2SAT 98
[2022-04-01 06:57] LABS: Reflex Lactic Add Lactic Reflex
== END 2022-04-01 05:36 | disposition home or self-care (01) ==
PROVIDERS: Emergency Provider Emergency Medicine; PCP Family Medicine
DX: R10.84 Generalized abdominal pain (principal); R11.10 Vomiting, unspecified
CPT/HCPCS: 74177; 80053; 81001; 82150; 83605; 83690; 84145; 84703; 85025; 85651; 86140; 96361; 96374; 99284; J2405; Q9967

== ENCOUNTER → 2022-04-14 09:57 | Outpatient (CLI) | payer MEDICAID, SELFPAY ==
--- NOTE | 2022-04-14 10:15 | US_ITS ---
FINAL REPORT CLINICAL HISTORY: evaluate uterus/endometrium with amenorrhea FINDINGS: Transvaginal sonographic images of the pelvis were obtained. The uterus is retroverted and measures 8.3 x 4.0 x 4.9 cm. The endometrium measures 10 mm, which is within normal limits. No uterine mass is identified. The right ovary measures 2.4 x 1.4 x 1.4 cm in length and left ovary measures 2.2 x 2.3 x 1.1 cm in length. Normal blood flow seen to the ovaries. There is no evidence of free fluid. IMPRESSION: No acute abnormality identified. Reviewed, Interpreted and Dictated by Andre Isaacs III, MD Transcribed by Lupe Payton Authenticated and [facility]
[2022-04-14 13:58] LABS: HCG,Quantitative < 2 mIU/ml (0-5.42)
[2022-04-15 08:14] LABS: Estradiol <5.0 pg/mL (.); FSH 36.5 mIU/mL (.); LH 25.3 mIU/mL (.)
== END ==
PROVIDERS: PCP Family Medicine; Visit Provider Obstetrics & Gynecology
DX: N91.2 Amenorrhea, unspecified (principal); J06.9 Acute upper respiratory infection, unspecified; R23.2 Flushing
CPT/HCPCS: 36415; 76830; 82670; 83001; 83002; 84702

== ENCOUNTER → 2022-05-26 14:00 | Outpatient (CLI) | payer MEDICAID, SELFPAY | PROVIDERS: PCP Emergency Medicine; Visit Provider Emergency Medicine | DX: L03.90 Cellulitis, unspecified (principal); A49.1 Streptococcal infection, unspecified site | CPT/HCPCS: 87070; 87077; 87186; 87205 ==

== ENCOUNTER 2022-09-27 17:52 | Emergency (ER) | payer OTHER, MEDICAID, SELFPAY ==
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
[2022-09-27 18:10] VITALS: BP 143/98; PULSE 91; RESP 20; TEMP 36.8; O2SAT 96; BMI 38.8
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
[2022-09-27 19:25] VITALS: BP 143/98; PULSE 91; RESP 20; TEMP 36.8; O2SAT 96
== END 2022-09-27 19:25 | disposition home or self-care (01) ==
PROVIDERS: Emergency Provider Nurse Practitioner Family; PCP Emergency Medicine
DX: M54.50 Low back pain, unspecified (principal); M25.561 Pain in right knee; M25.522 Pain in left elbow; V89.2XXA Person injured in unspecified motor-vehicle accident, traffic, initial encounter
CPT/HCPCS: 72110; 73080; 73562; 99213; 99214; G0463

== ENCOUNTER → 2022-10-30 23:52 | Outpatient (CLI) | payer MEDICAID, SELFPAY ==
[2022-10-30 18:43] LABS: Amphetamine/Metha Screen,Urine Negative ng/ml (<1000); Barbiturates Screen,Urine Negative ng/ml (<200)
[2022-10-30 18:44] LABS: Benzodiazepines Screen,Urine Negative ng/ml (<200)
[2022-10-30 18:45] LABS: Cannabinoid Screen,Urine Negative ng/ml (<50)
[2022-10-30 18:46] LABS: Cocaine Screen,Urine Negative ng/ml (<300)
[2022-10-30 18:47] LABS: Methadone Screen,Urine Negative ng/ml (<300); Opiate Screen,Urine Negative ng/ml (<300)
[2022-10-30 18:48] LABS: Phencyclidine Screen,Urine Negative ng/ml (<25)
== END ==
PROVIDERS: PCP Emergency Medicine; Visit Provider Emergency Medicine
DX: Z79.899 Other long term (current) drug therapy (principal)
CPT/HCPCS: 80305

== ENCOUNTER → 2022-11-01 12:54 | Outpatient (CLI) | payer OTHER, SELFPAY ==
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
== END ==
PROVIDERS: PCP Orthopaedic Surgery; Visit Provider Orthopaedic Surgery
DX: M25.521 Pain in right elbow (principal); M25.562 Pain in left knee
CPT/HCPCS: 73221; 73721

== ENCOUNTER → 2022-12-15 10:37 | Outpatient (CLI) | payer MEDICAID, SELFPAY ==
[2022-12-15 19:17] LABS: Amphetamine/Metha Screen,Urine Negative ng/ml (<1000)
[2022-12-15 19:18] LABS: Barbiturates Screen,Urine Negative ng/ml (<200)
[2022-12-15 19:19] LABS: Benzodiazepines Screen,Urine Negative ng/ml (<200)
[2022-12-15 19:20] LABS: Cocaine Screen,Urine Negative ng/ml (<300); Methadone Screen,Urine Negative ng/ml (<300)
[2022-12-15 19:21] LABS: Opiate Screen,Urine Negative ng/ml (<300)
[2022-12-15 19:23] LABS: Phencyclidine Screen,Urine Negative ng/ml (<25)
[2022-12-15 20:49] LABS: Cannabinoid Screen,Urine Negative ng/ml (<50)
== END ==
PROVIDERS: PCP Emergency Medicine; Visit Provider Emergency Medicine
DX: Z79.899 Other long term (current) drug therapy (principal)
CPT/HCPCS: 80305

== ENCOUNTER → 2023-02-12 14:43 | Outpatient (CLI) | payer MEDICAID, SELFPAY ==
[2023-02-12 14:14] LABS: Amphetamine/Metha Screen,Urine Negative ng/ml (<1000); Barbiturates Screen,Urine Negative ng/ml (<200)
[2023-02-12 14:15] LABS: Benzodiazepines Screen,Urine Negative ng/ml (<200); Cannabinoid Screen,Urine Negative ng/ml (<50)
[2023-02-12 14:16] LABS: Cocaine Screen,Urine Negative ng/ml (<300)
[2023-02-12 14:17] LABS: Methadone Screen,Urine Negative ng/ml (<300); Opiate Screen,Urine Negative ng/ml (<300)
[2023-02-12 14:18] LABS: Phencyclidine Screen,Urine Negative ng/ml (<25)
== END ==
PROVIDERS: PCP Emergency Medicine; Visit Provider Emergency Medicine
DX: Z79.899 Other long term (current) drug therapy (principal)
CPT/HCPCS: 80305

== ENCOUNTER → 2023-04-11 13:06 | Outpatient (CLI) | payer MEDICAID, SELFPAY ==
[2023-04-11 17:48] LABS: Cannabinoid Screen,Urine Negative ng/ml (<50)
[2023-04-11 17:49] LABS: Methadone Screen,Urine Negative ng/ml (<300)
[2023-04-11 17:52] LABS: Opiate Screen,Urine Negative ng/ml (<300)
[2023-04-11 18:15] LABS: Amphetamine/Metha Screen,Urine Negative ng/ml (<1000); Barbiturates Screen,Urine Negative ng/ml (<200); Benzodiazepines Screen,Urine Negative ng/ml (<200); Cocaine Screen,Urine Negative ng/ml (<300); Phencyclidine Screen,Urine Negative ng/ml (<25)
== END ==
PROVIDERS: PCP Emergency Medicine; Visit Provider Emergency Medicine
DX: F41.9 Anxiety disorder, unspecified (principal)
CPT/HCPCS: 80305

== ENCOUNTER → 2023-06-18 13:22 | Outpatient (CLI) | payer MEDICAID, SELFPAY ==
[2023-06-18 12:25] LABS: Basophils # 0.1 K/mm3 (0-0.2); Basophils % 0.7 % (0.1-2.0); Eosinophils # 0.2 K/mm3 (0.0-0.4); Eosinophils % 2.6 % (0.1-12.0); Hematocrit 48.6 % (37.0-47.0); Lymphocytes # 2.7 K/mm3 (0.7-4.5); Lymphocytes % 30.4 % (10-50); Mean Corpuscular HGB Conc 32.9 g/dL (31.8-35.4); Mean Corpuscular Volume 91.3 fl (81-99); Mean Platelet Volume 8.3 fl (7.4-10.4); Monocytes # 0.6 K/mm3 (0.1-1.0); Monocytes % 6.6 % (1.7-9.3); Neutrophils # 5.4 K/mm3 (1.8-7.8); Neutrophils % 59.7 % (37.0-80.0); Platelet Count 421 K/mm3 (142-424); Red Blood Count 5.32 M/mm3 (4.20-5.40); Red Cell Distribution Width 14.5 % (11.5-17.5)
[2023-06-18 12:52] LABS: Alanine Aminotransferase 28 U/L (12-78); Albumin Level 4.6 g/dl (3.5-5.0); Albumin/Globulin Ratio 1.4 (1.1-1.8); Alkaline Phosphatase 91 U/L (38-126); Aspartate Amino Transferase 27 U/L (14-36); Bilirubin,Total 0.5 mg/dl (0.2-1.3); Blood Urea Nitrogen 10 mg/dl (7-17); Carbon Dioxide 28 mmol/L (22.0-30.0); Chloride 106 mmol/L (98-107); Chol/HDL Ratio 4.7 (1-3.5); Cholesterol 232 mg/dl (140-200); Estimated Glomerular Filt Rate 135 ml/min (>60); GFR (African American) 163 ML/MIN (>60); Globulin 3.3 g/dL (1.3-3.2); Glucose 93 mg/dl (74-100); HDL Cholesterol 49 mg/dl (40-60); Sodium 142 mmol/L (136-145); Total Protein,Serum 7.9 g/dl (6.3-8.2); Triglycerides 90 mg/dl (30-150); VLDL Cholesterol 18 mg/dL (0-40)
[2023-06-18 13:03] LABS: Direct LDL Cholesterol 135.33 mg/dL (100-129)
[2023-06-18 13:09] LABS: 25-OH Vitamin D, Total 35.1 ng/mL (30-100)
[2023-06-18 13:13] LABS: T4 (Thyroxine) 10.7 ug/dl (5.53-11.0)
[2023-06-18 13:27] LABS: Thyroid Stimulating Hormone 1.29 uIU/mL (0.465-4.68)
[2023-06-18 16:52] LABS: Amphetamine/Metha Screen,Urine Negative ng/ml (<1000); Barbiturates Screen,Urine Negative ng/ml (<200)
[2023-06-18 16:53] LABS: Benzodiazepines Screen,Urine Negative ng/ml (<200)
[2023-06-18 16:54] LABS: Cannabinoid Screen,Urine Negative ng/ml (<50); Cocaine Screen,Urine Negative ng/ml (<300)
[2023-06-18 16:55] LABS: Methadone Screen,Urine Negative ng/ml (<300)
[2023-06-18 16:56] LABS: Opiate Screen,Urine Negative ng/ml (<300); Phencyclidine Screen,Urine Negative ng/ml (<25)
== END ==
PROVIDERS: PCP Emergency Medicine; Visit Provider Emergency Medicine
DX: M54.16 Radiculopathy, lumbar region (principal); E66.9 Obesity, unspecified; Z68.39 Body mass index [BMI] 39.0-39.9, adult; Z79.899 Other long term (current) drug therapy
CPT/HCPCS: 80053; 80061; 80305; 82306; 84436; 84443; 85025

== ENCOUNTER → 2023-08-14 23:33 | Outpatient (CLI) | payer MEDICAID, SELFPAY ==
[2023-08-14 20:19] LABS: Creatinine,Urine Random 46 mg/dL (Not Estab.)
[2023-08-14 20:26] LABS: Microalbumin < 6.000 mg/L (0-16.7)
== END ==
PROVIDERS: PCP Internal Medicine; Visit Provider Internal Medicine
DX: I10 Essential (primary) hypertension (principal); E66.3 Overweight; Z68.41 Body mass index [BMI] 40.0-44.9, adult
CPT/HCPCS: 82043; 82570

== ENCOUNTER 2023-12-04 16:24 | Outpatient (CLI) | payer MEDICAID, SELFPAY ==
--- NOTE | 2023-12-04 16:27 | MM_ITS ---
PROCEDURE INFORMATION: Exam: MG Bilateral Screening 3D Mammography Exam date and time: 12/04/2023 4:19 PM Age: 43 years old Clinical indication: Screening. Maternal and paternal grandmothers had breast cancer. TECHNIQUE: Imaging protocol: Bilateral Screening tomosynthesis and 2D mammography including computer-aided detection (CAD) when performed. COMPARISON: 1. MG MM DIG MAMM DX UNILAT RT CAD 11/25/2020 9:38 AM 2. MG MM DIG MAMM BI DX W/CAD 11/08/2020 2:05 PM 3. US BIOPSY BREAST RT 02/02/2021 1:04 PM 4. US FNA BREAST 11/25/2020 10:05 AM FINDINGS: MAMMOGRAPHY: Breast composition: There are scattered areas of fibroglandular density. Mass: No suspicious mass. Architectural distortion: None. Calcifications: No suspicious calcifications. Asymmetric density: None. Skin thickening: None. Axillary adenopathy: None. IMPRESSION: No mammographic evidence of malignancy. Annual screening is recommended unless otherwise clinically indicated. ASSESSMENT: BI-RADS Category 1: Negative
== END 2023-12-04 23:59 ==
LOC: RAD 16:24
PROVIDERS: PCP Internal Medicine; Visit Provider Internal Medicine
DX: Z12.31 Encounter for screening mammogram for malignant neoplasm of breast (principal)
CPT/HCPCS: 77063; 77067

== ENCOUNTER 2024-05-09 15:15 | Emergency (ER) | payer SELFPAY ==
[2024-05-09 15:20] VITALS: BP 128/83; PULSE 83; RESP 21; TEMP 36.9; O2SAT 96; BMI 41.1
--- NOTE | 2024-05-09 15:39 | EXP.UTC ---
Discharge Plan Disposition Patient Disposition: Home, Self-Care Condition: Good Prescriptions Prescriptions: New amoxicillin 875 mg tablet 875 mg PO Q12H Qty: 20 0RF fluticasone propionate [Flonase Allergy Relief] 50 mcg/actuation spray,suspension 2 spray intranasal DAILY Qty: 16 0RF Rx Instructions: administer into each nostril daily No Action lisinopril-hydrochlorothiazide 20-12.5 mg tablet 1 tab PO DAILY Qty: 90 1RF escitalopram oxalate 10 mg tablet 10 mg PO DAILY Qty: 90 0RF diazepam 5 mg tablet 5 mg PO BID PRN (Reason: anxiety) Qty: 60 1RF oxycodone-acetaminophen [Percocet] 10-325 mg tablet 1 tab PO TID Qty: 90 0RF Referrals Follow up/Referrals: Rizwan Jordan MD [Primary Care Provider] - See instructions Activity Restrictions/Add. Instructions Additional Instructions/Restrictions: *Monitor Temp, Over the counter Motrin or Tylenol as directed/as needed Tylenol every 4 hours and Motrin every 6 hours (as long as your family doctor has told you that you can take it) for fever or pain. and straight to ER if unable to lower temp less than 101.0 after medication given Take medication as prescribed *Sleep elevated *Humidifier/Vaporizer *Flonase 2 sprays in each nostril daily but be aware that it may take 2-3 days before you notice improvement Follow up IMMEDIATELY for new or worsening symptoms or no Noticeable improvement over the next 48-72 hours. 911 for difficulty breathing or swallowing Clinical Impressions Clinical Impression: Otitis media Instructions Patient Instructions: Middle Ear Infection, Amoxicillin Print Language Print Language: Moldovan Discharge ED Provider: Fang Lopez [facility] General Stated complaint: Dizziness,left earache Mode of Arrival: Ambulatory Source of Information: Patient Limitations: No Limitations Time Seen by Provider: 05/09/24 15:39 Description of Symptoms (Recalled from Triage Doc. by RN): PATIENT C/O EAR ACHE, HEAD CONGESTION, AND DIZZINESS SINCE YESTERDAY HEENT Symptoms (Recalled from RN notes): Yes Resp Symptoms (Recalled from RN notes): No Skin Symptoms (Recalled from RN notes): No MS Symptoms (Recalled from RN notes): No Functional Status (Recalled from RN notes): WNL History of Present Illness Provider Complaint: Patient state that she has been having sinus congestion for close to a week and started yesterday with pain and pressure in her left ear that is making her dizzy at times States today her ear was killing her so she came in to get it checked Related Data Previous Rx's ?Medication ?Instructions ?Recorded lisinopril 20 1 tab PO DAILY #90 tabs 10/18/23 mg-hydrochlorothiazide 12.5 mg tablet escitalopram oxalate 10 mg tablet 10 mg PO DAILY Depression #90 tabs 01/25/24 diazepam 5 mg tablet 5 mg PO BID PRN anxiety #60 tabs 03/21/24 oxycodone-acetaminophen 10 mg-325 1 tab PO TID #90 tabs 04/28/24 mg tablet (Percocet) amoxicillin 875 mg tablet 875 mg PO Q12H #20 tabs 05/09/24 fluticasone propionate 50 2 spray intranasal DAILY #16 grams 05/09/24 mcg/actuation nasal spray,suspension (Flonase Allergy Relief) Allergies Allergy/AdvReac Type Severity Reaction Status Date / Time aspirin [ASPIRIN] Allergy Intermediate I-RASH Verified 03/21/24 08:50 Worker's Comp Is this a Worker's Comp case?: No [facility] Disclaimer: The information contained in this section may have been updated after the patient was seen, as this information can be updated by other users. Medical History (Updated 05/09/24 @ 15:44 by Fang Lopez APRN) Tobacco abuse ASCUS with positive high risk HPV Chronic prescription opiate use Chronic prescription benzodiazepine use Obesity, morbid, BMI 40.0-49.9 Depressive disorder Hypertension Vitamin D deficiency (~09/2017) Anxiety Surgical History H/O colposcopy with cervical biopsy H/O breast surgery History
[2024-05-09 16:03] VITALS: BP 128/83; PULSE 83; RESP 21; TEMP 36.9; O2SAT 96
== END 2024-05-09 16:05 | disposition home or self-care (01) ==
PROVIDERS: Emergency Provider Nurse Practitioner; PCP Family Medicine
DX: H66.92 Otitis media, unspecified, left ear (principal); H92.02 Otalgia, left ear; R42 Dizziness and giddiness
CPT/HCPCS: 99212; 99214; G0463

== ENCOUNTER 2024-07-15 13:35 | Outpatient (CLI) | payer OTHER, SELFPAY ==
[2024-07-15 13:37] LABS: Albumin Level 4.8 g/dl (3.5-5.0); Chloride 105 mmol/L (98-107); Sodium 137 mmol/L (136-145)
[2024-07-15 13:38] LABS: Potassium 4.5 mmoL/L (3.5-5.1)
[2024-07-15 13:40] LABS: Alanine Aminotransferase 22 U/L (12-78); Albumin/Globulin Ratio 1.7 (1.1-1.8); Alkaline Phosphatase 90 U/L (38-126); Anion Gap 13.5 mEq/L (5-15); Aspartate Amino Transferase 28 U/L (14-36); Bilirubin,Total 0.6 mg/dl (0.2-1.3); Blood Urea Nitrogen 15 mg/dl (7-17); Carbon Dioxide 23 mmol/L (22.0-30.0); Cholesterol 246 mg/dl (140-200); Estimated Glomerular Filt Rate 173 ml/min (>60); GFR (African American) 210 ML/MIN (>60); Globulin 2.8 g/dL (1.3-3.2); Total Protein,Serum 7.6 g/dl (6.3-8.2); Triglycerides 117 mg/dl (30-150); VLDL Cholesterol 23 mg/dL (0-40)
[2024-07-15 13:41] LABS: Glucose 94 mg/dl (74-100); HDL Cholesterol 49 mg/dl (40-60)
[2024-07-15 13:51] LABS: Direct LDL Cholesterol 153.47 mg/dL (100-129)
[2024-07-15 17:37] LABS: HIV (1&2) Antibody Rapid NONREACTIVE (NONREACTIVE)
[2024-07-16 10:16] LABS: HCV Ab Non Reactive (Non Reactive)
== END 2024-07-15 23:59 | disposition home or self-care (01) ==
LOC: LAB.DROPOF 13:35
PROVIDERS: PCP Internal Medicine; Visit Provider Internal Medicine
DX: Z00.00 Encounter for general adult medical examination without abnormal findings (principal); Z11.59 Encounter for screening for other viral diseases; Z13.220 Encounter for screening for lipoid disorders; Z11.4 Encounter for screening for human immunodeficiency virus [HIV]
CPT/HCPCS: 80053; 80061; 86803; 87389

== ENCOUNTER → 2025-03-11 07:30 | Outpatient (CLI) | payer MEDICAID, SELFPAY ==
--- OUTSIDE RECORDS SUMMARY | 2025-03-11 07:43 | XMS_ITS | Clinical Summary ---
Author Organization [facility] Address [address] [id number] Care Team Providers Care Director Facilities Maintenance Name Role Phone Abhijit Goodrich MD Primary Care Provider [phone] Social History Tobacco Use Types Packs/Day Years Used Date Smoking Tobacco: Never Assessed Comments Unknown Sex and Gender Information Value Date Recorded Sex Assigned at Not on file Legal Sex Female 6:40 PM EDT Gender Identity Not on file Sexual Orientation Not on file Last Filed Vital Signs Vital Sign Reading Time Taken Comments Blood Pressure 137/82 06/28/2018 9:57 AM EDT Pulse 97 06/28/2018 9:57 AM EDT Temperature - - Respiratory Rate - - Oxygen Saturation - - Inhaled Oxygen Concentration - - Weight 95 kg (209 lb 7 oz) 06/28/2018 9:57 AM ED T Height 167.6 cm (5' 6 ) 06/28/2018 9:57 AM EDT Body Mass Index 33.8 06/28/2018 9:57 AM EDT Plan of Treatment Health Maintenance Due Date Last Done Comments [facility]-Depression Screening 1979 [facility]-Infant/Child/Adol SDOH Screenings 1979 [facility]-Varicella Vaccines (1 of 2 - 13+ 2-dose series) 1992 HPV Vaccines (1 - 3-dose series) 1994 [facility]- SDOH Screenings 1997 [facility]-Adult SDOH Screenings 1997 [facility]-Hepatitis B Vaccines (1 of 3 - 19+ 3-dose series) 1998 [facility]-Pap Smear 2000 [facility]-Cervical Cancer Screening 2009 [facility]-HPV/Cotest 2009 [facility]-DTaP,Tdap,and Td Vaccine s (2 - Td or Tdap) 08/12/2020 08/12/2010 [id number] Vaccine (1 - 20 24-25 season) 2024 CT Colonography 2024 Colonoscopy 2024 FIT-DNA 2024 FIT 2024 FOBT 2024 Sigmoidoscopy 2024 [facility]-Colorectal Cancer Screening 2024 [facility]-Influenza Vaccine ([place]as[place] n Ended) 2025 [facility]-Zoster Vaccines (1 of 2) 2029 [facility]-HIB Vaccines Aged Out No longer e ligible based on patient's age to complete this topic [facility]-Hepatitis A Vaccines Aged Out No longer eligible based on patient's age to complete this topic [facility]-IPV Vaccines Aged Out No longer e ligible based on patient's age to complete this topic [facility]-Pneumococcal Vaccine: Pediatrics (0 to 5 Years) and At-Risk Patients (6 to 49 Years) Aged Out No long er eligible based on patient's age to complete this topic [facility]-Rotavirus Vaccines Aged Out No lo nger eligible based on patient's age to complete this topic Insurance [employer] Care Teams Director Facilities Maintenance Relationship Specialty Start Date End Date Abhijit Goodrich MD [address] [place] [id number] [facility] - General 01/21/21
== END ==
LOC: SL 07:31
PROVIDERS: PCP Internal Medicine; Visit Provider Internal Medicine
DX: G47.33 Obstructive sleep apnea (adult) (pediatric) (principal); G47.36 Sleep related hypoventilation in conditions classified elsewhere
CPT/HCPCS: G0399